=== PATIENT | female | born 1945 | race Caucasian/White ===

== ENCOUNTER → 2017-07-10 | Outpatient (CLI) | payer OTHER, MEDICARE ==
[~2017-07-10] MED LIST: ACTONEL150 MG PO; AMBEREN PO; ASPIRIN EC325 M1 PO; CALCIUM 500 +1 EAC5 PO; FISH OIL 1,2001 EAC3 PO; FLEXERIL PO; IBUPROFEN 200200 M1 PO; LEXAPRO 10 MG T10 MG PO; LOW DOSE ASPIRI81 M1 PO; RESTASIS1 EACH; SOTALOL 120 MG120 MG PO; SYNTHROID50 MCG PO; TOPROL XL25 MG PO; VITAMIN D31000 UNI2 PO; VYTORIN 10-201 EACH PO; XARELTO10 MG PO
== END ==
LOC: NUC 10:31
DX: M81.0 Age-related osteoporosis without current pathological fracture (principal)